=== PATIENT | female | born 1965 | race African-American/Black ===

== ENCOUNTER 2018-06-19 09:59 | Emergency (ER) | payer BC, OTHER ==
[~2018-06-19] VITALS: Ht 167.6 cm; Wt 74.0 kg
[~2018-06-19 09:59] MED LIST: EXEM25TA5 PO
[2018-06-19 10:02] VITALS: Ht 167.6 cm; Wt 74.0 kg
[2018-06-19] MEDS ORDERED: KETOROLAC 30 MG INJ IV STA (10:28)
[2018-06-19] MEDS ORDERED: IBUP-1542 PO (13:17)
--- NOTE | 2018-06-19 13:20 | ERD ---
ER Documentation Chief Complaint Chief Complaint pt bib self with c/o left sided back pain HPI 52-year-old female presents with intermittent left flank pain for last few days. It is sharp. It is not sustained and nonradiating. Patient describes it as 7 out of 10. Patient has a history of kidney stones as well as diverticulitis as well as breast cancer in remission. She denies any fevers, vomiting, cough, shortness breath or chest pain or urinary complaints. ROS All systems reviewed and are negative except as per history of present illness. Medications Home Meds Active Scripts Ibuprofen* (Motrin*) 600 Mg Tab, 600 MG PO Q6, #20 TAB Prov:BEATRIS MCNALLY MD 06/19/18 Reported Medications Exemestane* (Aromasin*) 25 Mg Tablet, 25 MG PO DAILY 07/17/11 Allergies Allergies: Coded Allergies: No Known Drug Allergy (Verified Allergy, Unknown, 02/09/14) PMhx/Soc History of Surgery: Yes (LT BREAST LUMPECTOMY/LT BREAST MASTECTOMY) Anesthesia Reaction: No Hx Neurological Disorder: No Hx Respiratory Disorders: No Hx Cardiac Disorders: No Hx Psychiatric Problems: No Hx Miscellaneous Medical Probl: Yes (Lt breast CA) Hx Alcohol Use: No Hx Substance Use: No Hx Tobacco Use: No Smoking Status: Never smoker FmHx Family History: No diabetes, No coronary disease, No other Physical Exam Vitals Vital Signs Date Temp Pulse Resp B/P (MAP) Pulse Ox O2 O2 Flow FiO2 Time Delivery Rate 06/19/18 97.3 97 16 163/83 100 10:02 (109) Physical Exam Const: No acute distress Head: Atraumatic Eyes: Normal Conjunctiva ENT: Normal External Ears, Nose and Mouth. Neck: Full range of motion. No meningismus. Resp: Clear to auscultation bilaterally Cardio: Regular rate and rhythm, no murmurs Abd: Soft, non tender, non distended. Normal bowel sounds Skin: No petechiae or rashes Back: No midline tenderness. Minimal left-sided flank tenderness. No tenderness McBurney's point no Wakefield sign and no rebound. Ext: No cyanosis, or edema Neur: Awake and alert Psych: Normal Mood and Affect Result Diagram: 06/19/18 1049 06/19/18 1049 Results 24 hrs Laboratory Tests Test 06/19/18 10:49 06/19/18 10:52 White Blood Count 6.5 10^3/ul Red Blood Count 4.26 10^6/ul Hemoglobin 13.2 g/dl Hematocrit 40.5 % Mean Corpuscular Volume 95.1 fl Mean Corpuscular Hemoglobin 31.0 pg Mean Corpuscular Hemoglobin Concent 32.6 g/dl Red Cell Distribution Width 12.4 % Platelet Count 236 10^3/UL Mean Platelet Volume 9.5 fl Immature Granulocytes % 0.200 % Neutrophils % 44.2 % Lymphocytes % 48.5 % Monocytes % 6.3 % Eosinophils % 0.5 % Basophils % 0.3 % Nucleated Red Blood Cells % 0.0 /100WBC Immature Granulocytes # 0.010 10^3/ul Neutrophils # 2.9 10^3/ul Lymphocytes # 3.1 10^3/ul Monocytes # 0.4 10^3/ul Eosinophils # 0.0 10^3/ul Basophils # 0.0 10^3/ul Nucleated Red Blood Cells # 0.0 10^3/ul Urine Color STRAW Urine Clarity CLEAR Urine pH 6.0 Urine Specific [place] 1.010 Urine Ketones NEGATIVE mg/dL Urine Nitrite NEGATIVE mg/dL Urine Bilirubin NEGATIVE mg/dL Urine Urobilinogen NEGATIVE mg/dL Urine Leukocyte Esterase TRACE Otis/ul Urine Microscopic RBC 1 /HPF Urine Microscopic WBC 4 /HPF Urine Squamous Epithelial Cells FEW /HPF Urine Hemoglobin 1+ mg/dL Urine Glucose NEGATIVE mg/dL Urine Total Protein NEGATIVE mg/dl Sodium Level 142 mmol/L Potassium Level 3.6 mmol/L Chloride Level 103 mmol/L Carbon Dioxide Level 31 mmol/L Anion Gap 8 Blood Urea Nitrogen 10 mg/dl Creatinine 0.68 mg/dl Est Glomerular Filtrat Rate mL/min > 60 mL/min Glucose Level 89 mg/dl Calcium Level 9.5 mg/dl Total Bilirubin 0.9 mg/dl Direct Bilirubin 0.00 mg/dl Indirect Bilirubin 0.9 mg/dl Aspartate Amino Transf (AST/SGOT) 26 IU/L Alanine Aminotransferase (ALT/SGPT) 17 IU/L Alkaline Phosphatase 71 IU/L Total Protein 8.7 g/dl Albumin 4.5 g/dl Globulin 4.20 g/dl Albumin/Globulin Ratio 1.07 Lipase 56 U/L POC Beta HCG, Qualitative NEGATIVE Current Medications Medications Dose Sig/Rekha Start Time Status Last (Trade) Ordered Route PRN Stop Time Admin Dose Reason Admin Ketorolac 30 mg ONCE STAT 06/19/18 DC 06/19/18 Tromethamine IV 10:28 06/19/18 10:54 (Toradol) 10:30 Procedures/MDM CBC and CMP and lipase normal. Urine shows 4 white blood cells and 1 red blood cell. There is trace leukocyte esterase. HCG is negative. Given the uncertain cause of pain CT abdomen pelvis was performed which shows possible bone island in the left iliac crest correlate with patient's history. Stenosed other significant acute abnormalities. There is diverticulosis without signs of diverticulitis. There is no stones appreciated. Patient was given Toradol 30 mg IV. Patient resents with left leg pain of uncertain etiology. Doubt UTI g iven minimal findings. She may have muscular skeletal pain. I am recommending ibuprofen, we will await urine culture for treatment as patient has no urinary complaints. Patient is advised to continue follow-up with oncology for review of CT and bone island of iliac crest is relation to possible previous cancer diagnosis. The patient was stable with no new complaints during the ER course. Clinically, there is no current evidence to suggest meningitis, sepsis, acute abdomen, pneumonia, stroke, acute coronary syndrome, pulmonary embolism, aortic dissection or any other emergent condition appearing to require further evaluation or hospitalization. Patient counseled regarding my diagnostic impression and care plan. Prior to discharge all questions answered. Pt agrees with treatment plan and understands strict return precautions. Pt is instructed to follow up with primary care provider within 24-48 hours. Precautionary instructions provided including instructions to return to the ER if not improving or for any worsening or changing symptoms or concerns. Departure Diagnosis: Primary Impression: Back pain Condition: Stable Patient Instructions: Flank Pain, Uncertain Cause Additional Instructions: No significant abnormalities noted on examinations today. Continue follow-up with oncologist for review of CT scan. We will send urine for culture and you s felicitas be called with abnormal results. Recheck for fevers, vomiting, worsening pain, new worsening symptoms. BEATRIS MCNALLY MD Jun 19, 2018 13:20
[2018-06-19 13:36] VITALS: BP 133/74; PULSE 91; RESP 14
== END 2018-06-19 13:35 | disposition home or self-care (01) ==
LOC: FTE 09:59
DX: M54.9 Dorsalgia, unspecified (principal); Z85.3 Personal history of malignant neoplasm of breast
CPT/HCPCS: 36415; 74176; 80053; 81001; 81025; 83690; 85025; 96374; 99285; J1885